=== PATIENT | male | born 1980 | race Caucasian/White ===

== ENCOUNTER 2017-04-06 07:11 | Emergency (ER) | payer MEDICAID ==
[~2017-04-06] VITALS: Ht 172.7 cm; Wt 79.0 kg
[2017-04-06 07:14] VITALS: Ht 172.7 cm; Wt 79.0 kg
[2017-04-06] MEDS ORDERED: ONDANSETRON (ODT) 4 MG TAB ODT STA (07:59)
[2017-04-06] MEDS ORDERED: DICYCLOMINE 10 MG CAP PO ONE (08:00)
[2017-04-06 08:23] LABS: BASOPHIL # 0.1 10^3/ul (0.0-0.1); BASOPHILS % 0.9 % (0.0-2.0); EOSINOPHILS # 0.2 10^3/ul (0.0-0.5); EOSINOPHILS % 2.2 % (0.0-7.0); HEMATOCRIT 44.7 % (42.0-52.0); HEMOGLOBIN 14.1 g/dl (14.0-18.0); LYMPHOCYTES # 2.6 10^3/ul (0.8-2.9); LYMPHOCYTES % 37.8 % (15.0-51.0); MEAN CORPUSCULAR HEMOGLOBIN 27.6 pg (29.0-33.0); MEAN CORPUSCULAR HGB CONC 31.5 g/dl (32.0-37.0); MEAN CORPUSCULAR VOLUME 87.5 fl (82.0-101.0); MEAN PLATELET VOLUME 10.3 fl (7.4-10.4); MONOCYTE # 0.9 10^3/ul (0.3-0.9); MONOCYTES % 12.3 % (0.0-11.0); NEUTROPHILS % 46.4 % (39.0-77.0); PLATELET COUNT 286 10^3/UL (140-415); RED BLOOD COUNT 5.11 10^6/ul (4.70-6.10); RED CELL DISTRIBUTION WIDTH 11.6 % (11.5-14.5); WHITE BLOOD COUNT 6.9 10^3/ul (4.8-10.8)
--- NOTE | 2017-04-06 08:28 | RADRPT ---
PROCEDURE: CT Abdomen and Pelvis without contrast. CLINICAL INDICATION: Diffuse abdominal pain and bloating times 1 week. TECHNIQUE: CT scan of the abdomen and pelvis without contrast was performed on a multidetector hig h-resolution CT scanner. The patient was scanned without intravenous contrast. Coronal and sagittal reformatted images were obtained from the axial source images. Images were reviewed on a high-resol [employer] PACS workstation. The total exam CTDI equals 10.21 mGy and the total exam DLP equals 653.13 mG y-cm. One or the following dose reduction techniques were used: -Automated exposure control. -Adjustment of the mA and/or KV according to patient's size. -Use of iterative reconstruction technique. COMPARISON: None. FINDINGS: Limitation: The overall sensitivity of the study is lowered by the fact that oral and intravenous c ontrast was not utilized. Lung Bases: There is minimal bibasilar dependent subsegmental atelectasis. GI:. There is a tiny hiatal hernia. Liver: Liver appears normal in size with a decrease in the overall attenuation suggesting mild steat osis. Gallbladder: Unremarkable. Pancreas: Unremarkable. Spleen: Unremarkablel Adrenals: Unremarkable. Kidneys: There is no evidence of urolithiasis or obstructive uropathy. There is a 0.5 cm hyperdense cortical nodule in the upper pole of the left kidney consistent with a Bosniak type 2 cyst. Bladder: Unremarkable. Pelvic Organs: Unremarkable. Skeleton: Normal for age. Other: There are a few reactive, sub-centimeter lymph nodes in the periaortic region and along the i nternal iliac chain bilaterally. IMPRESSION: 1. Decreased attenuation in the liver suggesting diffuse steatosis. 2. No evidence of urolithiasis or obstructive uropathy. 3. 0.5-cm hyperdense cortical nodule in the left kidney consistent with a Bosniak type 2 cyst. 4. Scattered fecal residue throughout otherwise normal caliber colon. 5. Normal-appearing vermiform appendix. 6. Small hiatal hernia. 7. Minimal sub centimeter retroperitoneal reactive lymph nodes. RPTAT: [facility] Physician Polina Date Time Electronically viewed and signed by Ruben Gao Physician on 04/06/2017 08:28 MARICRUZ/
--- NOTE | 2017-04-06 08:28 | ERD ---
ER Documentation Chief Complaint Date/Time DATE: 04/06/17 TIME: 08:24 Chief Complaint MID ABDOMINAL PAIN RADIATING TO THE BACK X 1 WEEK,FEELING BLOATED.BM YESTER HPI Patient is a 36-year-old male with no past medical history who presents to the emergency department for concerns of diffuse abdominal pain 1.5 weeks. She describes the pain to be episodic in nature. Patient describes the pain to be "throbbing" in nature. Patient states that he does have chills however he denies any fevers. Patient does report nausea however denies any vomiting. Patient also reports increased bloating. Patient denies any urinary symptoms or diarrhea. Patient states his last bowel movement was yesterday. Denies history of constipation. Patient does admit to eating spicy and fried foods often. Patient denies any recent NSAID use. No recent travel. No sick contacts. Patient denies any chest pain, shortness of breath, left upper extremity pain or LOC. ROS All systems reviewed and are negative except as per history of present illness. Medications Home Meds Active Scripts Famotidine* (Pepcid*) 20 Mg Tablet, 20 MG PO DAILY for 30 Days, TAB Prov:MARICARMEN SHEIKH PA-C 04/06/17 Dicyclomine Hcl* (Bentyl*) 10 Mg Capsule, 10 MG PO QID, #15 CAP Prov:MARICARMEN SHEIKH PA-C 04/06/17 PMhx/Soc Medical and Surgical Hx: pt denies Medical Hx, pt denies Surgical Hx Hx Alcohol Use: Yes (occasionally) Hx Substance Use: No Hx Tobacco Use: No Smoking Status: Never smoker Physical Exam Vitals Vital Signs Date Time Temp Pulse Resp B/P Pulse Ox O2 Delivery O2 Flow Rate FiO2 04/06/17 07:14 97.1 85 18 158/99 98 Physical Exam GENERAL: Well-developed, well-nourished male. Appears in no acute distress. HEAD: Normocephalic, atraumatic. EYES: Pupils are equally reactive bilaterally. EOMs grossly intact. No conjunctival erythema. ENT: Moist mucous membranes. No uvula deviation. No kissing tonsils. NECK: Supple. No meningismus. Normal range of motion of the neck. LUNG: Clear to auscultation bilaterally. No rhonchi, wheezing, rales or coarse breath sounds. HEART: Regular rate and rhythm. No murmurs, rubs or gallops. ABDOMEN: No scars, ecchymosis or rashes noted. Soft, nontender. Slightly distended. No rebound tenderness, no guarding. (-) McBurney's point tenderness. No CVA tenderness. EXTREMITIES: Equal pulses bilaterally. No peripheral clubbing, cyanosis or edema. No unilateral leg swelling. NEUROLOGIC: Alert and oriented. Moving all four extremities without any difficulty. Normal speech. Steady gait. SKIN: Normal color. Warm and dry. No rashes or lesions. Result Diagram: 04/06/17 0808 04/06/17 0808 Results 24 hrs Laboratory Tests Test 04/06/17 08:08 04/06/17 09:55 White Blood Count 6.910^3/ul Red Blood Count 5.1110^6/ul Hemoglobin 14.1g/dl Hematocrit 44.7% Mean Corpuscular Volume 87.5fl Mean Corpuscular Hemoglobin 27.6pg Mean Corpuscular Hemoglobin Concent 31.5g/dl Red Cell Distribution Width 11.6% Platelet Count 39706^3/UL Mean Platelet Volume 10.3fl Neutrophils % 46.4% Lymphocytes % 37.8% Monocytes % 12.3% Eosinophils % 2.2% Basophils % 0.9% Nucleated Red Blood Cells % 0.0/100WBC Neutrophils # (Manual) 3.210^3/ul Lymphocytes # 2.610^3/ul Monocytes # 0.910^3/ul Eosinophils # 0.210^3/ul Basophils # 0.110^3/ul Nucleated Red Blood Cells # 0.010^3/ul Sodium Level 144mmol/L Potassium Level 4.7mmol/L Chloride Level 104mmol/L Carbon Dioxide Level 29mmol/L Anion Gap 16 Blood Urea Nitrogen 12mg/dl Creatinine 1.09mg/dl Glucose Level 98mg/dl Calcium Level 9.4mg/dl Total Bilirubin 0.2mg/dl Direct Bilirubin 0.00mg/dl Indirect Bilirubin 0.2mg/dl Aspartate Amino Transf (AST/SGOT) 24IU/L Alanine Aminotransferase (ALT/SGPT) 33IU/L Alkaline Phosphatase 94IU/L Total Protein 8.5g/dl Albumin 4.6g/dl Globulin 3.90g/dl Albumin/Globulin Ratio 1.17 Lipase 121U/L Urine Color STRAW Urine Clarity CLEAR Urine pH 7.0 Urine Specific [place] 1.006 Urine Ketones NEGATIVEmg/dL Urine Nitrite NEGATIVEmg/dL Urine Bilirubin NEGATIVEmg/dL Urine Urobilinogen NEGATIVEmg/dL Urine Leukocyte Esterase NEGATIVELeu/ul Urine Hemoglobin NEGATIVEmg/dL Urine Glucose NEGATIVEmg/dL Urine Total Protein NEGATIVEmg/dl Current Medications Medications (Trade) Dose Ordered Sig/Renee Route PRN Reason Start Time Stop Time Status Last Admin Dose Admin Ondansetron HCl (Zofran Odt) 4 mg ONCE STAT ODT 04/06/17 07:59 04/06/17 08:02 DC 04/06/17 08:17 Dicyclomine HCl (Bentyl) 10 mg ONCE ONCE PO 04/06/17 08:00 04/06/17 08:02 DC 04/06/17 08:16 Procedures/MDM ED COURSE: The patient was stable throughout ED course. I kept the patient and/or family informed of laboratory and diagnostic imaging results throughout the ED course. DIAGNOSTIC IMAGING: Read by radiologist. Patient: NOEMI CHAVEZ : 1980 Age: 36 Sex: M MR #: [id number] DOS: 04/06/17 0759 Ordering MD: MARICARMEN SHEIKH PA-C Location: [facility] Room/Bed: PROCEDURE: CT Abdomen and Pelvis without contrast. CLINICAL INDICATION: Diffuse abdominal pain and bloating times 1 week. TECHNIQUE: CT scan of the abdomen and pelvis without contrast was performed on a multidetector high-resolution CT scanner. The patient was scanned without intravenous contrast. Coronal and sagittal reformatted images were obtained from the axial source images. Images were reviewed on a high-resolution PACS workstation. The total exam CTDI equals 10.21 mGy and the total exam DLP equals 653.13 mGy-cm. One or the following dose reduction techniques were used: -Automated exposure control. -Adjustment of the mA and/or KV according to patient's size. -Use of iterative reconstruction technique. COMPARISON: None. FINDINGS: Limitation: The overall sensitivity of the study is lowered by the fact that oral and intravenous contrast was not utilized. Lung Bases: There is minimal bibasilar dependent subsegmental atelectasis. GI:. There is a tiny hiatal hernia. Liver: Liver appears normal in size with a decrease in the overall attenuation suggesting mild steatosis. Gallbladder: Unremarkable. Pancreas: Unremarkable. Spleen: Unremarkablel Adrenals: Unremarkable. Kidneys: There is no evidence of urolithiasis or obstructive uropathy. There is a 0.5 cm hyperdense cortical nodule in the upper pole of the left kidney consistent with a Bosniak type 2 cyst. Bladder: Unremarkable. Pelvic Organs: Unremarkable. Skeleton: Normal for age. Other: There are a few reactive, sub-centimeter lymph nodes in the periaortic region and along the internal iliac chain bilaterally. IMPRESSION: 1. Decreased attenuation in the liver suggesting diffuse steatosis. 2. No evidence of urolithiasis or obstructive uropathy. 3. 0.5-cm hyperdense cortical nodule in the left kidney consistent with a Bosniak type 2 cyst. 4. Scattered fecal residue throughout otherwise normal caliber colon. 5. Normal-appearing vermiform appendix. 6. Small hiatal hernia. 7. Minimal sub centimeter retroperitoneal reactive lymph nodes. RPTAT: A[facility] Physician Polina Date Time Electronically viewed and signed by Physician Polina on 04/06/2017 08: 28 JH/ CC: MAIRCARMEN SHEIKH PA-C PROCEDURES: None. MEDICATIONS GIVEN: Jaswinder Reyes Patient tolerated medication well with no adverse reactions. MEDICAL DECISION MAKING: This is a 36-year-old male who presents with diffuse abdominal pain and bloating 1.5 weeks. Patient does admit to chills and nausea. Denies any vomiting or diarrhea. Vital signs were reviewed. Patient is afebrile. Patient was slightly distended upon abdominal exam. CBC showed no evidence of systemic infection or severe anemia. CMP showed no evidence of electrolyte abnormalities , severe acidosis, alkalosis, renal failure, or liver disease. Lipase showed no evidence of acute pancreatitis. UA showed no evidence of acute infection or hematuria. CT abdomen and pelvis showed 1. Decreased attenuation in the liver suggesting diffuse steatosis. 2. No evidence of urolithiasis or obstructive uropathy. 3. 0.5-cm hyperdense cortical nodule in the left kidney consistent with a Bosniak type 2 cyst. 4. Scattered fecal residue throughout otherwise normal caliber colon. 5. Normal-appearing vermiform appendix. 6. Small hiatal hernia. 7. Minimal sub centimeter retroperitoneal reactive lymph nodes. At this time, patient's presentation is most consistent with left kidney cyst, diffuse abdominal pain and bloating. I have a much lower clinical concern for acute coronary syndrome, AAA, mesenteric ischemia, lower lobe pneumonia, DKA, bowel perforation, bowel obstruction, cholecystitis, choledocholithiasis, pancreatitis, splenic rupture, diverticulitis, UTI, pyelonephritis, nephrolithiasis, appendicitis, constipation. Patient was advised to follow up with a GI specialist and first officer for further management of his symptoms. Referral information provided. PRESCRIPTIONS: Famotidine, Bentyl DISCHARGE: At this time, patient is stable for discharge and outpatient management. Patient was given a copy of all blood work and imaging studies obtained today. I have instructed the patient to follow-up with his/her primary care physician in 1-2 days. I have instructed the patient to promptly return to the ER at any time for any new or worsening symptoms including increased pain, nausea, vomiting, diarrhea, fever, weakness or LOC. The patient and/or family expressed understanding of and agreement with this plan. All questions were answered. Home care instructions were provided. Departure Diagnosis: Primary Impression: Abdominal pain Abdominal location: generalized Qualified Code: R10.84 - Generalized abdominal pain Additional Impression: Bloating Condition: Stable Patient Instructions: Abdominal Pain Referrals: BYRON FELIX MD, NAGARAJ M MD CHITAYAT,MUNDO MEADOWS MD, RICHARD K MD JOGANI, PIYUSH K MD KASHER,VANDANA LINDA,HUMERA Additional Instructions: Avoid spicy foods, fried foods, citrus foods. Follow up with GI specialist for further management of your symptoms. See referral information. You may need an EGD/colonoscopy on outpatient basis. Call your primary care doctor TOMORROW for an appointment during the next 1-2 days.See the doctor sooner or return here if your condition worsens before your appointment time. MARICARMEN SHEIKH PA-C Apr 06, 2017 08:27
[2017-04-06 08:43] LABS: ALBUMIN 4.6 g/dl (3.3-4.9); ALBUMIN/GLOBULIN RATIO 1.17; BILIRUBIN,INDIRECT 0.2 mg/dl (0-1.1); BILIRUBIN,TOTAL 0.2 mg/dl (0.2-1.3); CALCIUM 9.4 mg/dl (8.4-10.2); CREATININE 1.09 mg/dl (0.61-1.24); POTASSIUM 4.7 mmol/L (3.5-5.1); TOTAL PROTEIN 8.5 g/dl (6.1-8.1)
[2017-04-06 10:17] LABS: ADD UMIC NO; UR ASCORBIC ACID NEGATIVE (NEGATIVE); UR BILIRUBIN (Dip) NEGATIVE (NEGATIVE); UR BLOOD (Dip) NEGATIVE (NEGATIVE); UR CLARITY CLEAR (CLEAR); UR COLOR STRAW (YELLOW); UR GLUCOSE (Dip) NEGATIVE (NEGATIVE); UR KETONES (Dip) NEGATIVE (NEGATIVE); UR LEUKOCYTE ESTERASE (Dip) NEGATIVE Leu/ul (NEGATIVE); UR NITRITE (Dip) NEGATIVE (NEGATIVE); UR SPECIFIC GRAVITY (Dip) 1.006 (1.003-1.030); UR TOTAL PROTEIN (Dip) NEGATIVE (NEGATIVE); UR UROBILINOGEN (Dip) NEGATIVE (NEGATIVE)
[2017-04-06] MEDS ORDERED: DICY10CA60 PO (10:41)
[2017-04-06] MEDS ORDERED: FAMO-96 PO (10:42)
== END 2017-04-06 10:51 | disposition home or self-care (01) ==
LOC: FTE 07:11
DX: R10.84 Generalized abdominal pain (principal); R14.0 Abdominal distension (gaseous)
CPT/HCPCS: 36415; 74176; 80053; 81003; 83690; 85025; Z7502; Z7610